=== PATIENT | female | born 1960 | race Hispanic/Latino ===

== ENCOUNTER 2025-05-18 10:04 | Emergency (ER) | payer OTHER, MEDICARE ==
[~2025-05-18] VITALS: Ht 170.2 cm; Wt 106.1 kg
[2025-05-18 10:40] LABS: BASOPHILS 0.5 % (0.1-1.2); EOSINOPHILS 0.6 % (0.7-5.8); LYMPHOCYTES 20.5 % (19.3-51.7); MCH 32.8 PG (25.6-32.2); MCHC 33.9 g/dL (32.2-35.5); MCV 96.9 fL (79.4-94.8); MONOCYTES 4.9 % (4.7-12.5); NEUTROPHILS 73.1 % (34.0-71.1); RBC 4.54 M/uL (3.93-5.22)
[2025-05-18] MEDS ORDERED: SODIUM CHLORIDE 0.9% 1,000 ML IV ONE (10:45)
[2025-05-18 10:58] LABS: ALT (SGPT) 112.0 U/L (14-59); AST (SGOT) 58.0 U/L (15-37); GLOMERULAR FILTRATION RATE,EST 51.0 mL/min (>60); PROTEIN, TOTAL 8.0 g/dL (6.4-8.2); UREA NITROGEN 20.0 mg/dL (7-18)
[2025-05-18 11:07] LABS: BLOOD/HGB, URINE NEGATIVE (Negative); KETONE, URINE SMALL (Negative); LEUK ESTERASE, URINE NEGATIVE (negative); NITRITE, URINE NEGATIVE (negative)
[2025-05-18 11:15] LABS: EPITHELIAL CELLS, URINE SQUAMOUS 2+ /lpf (0-1+)
[2025-05-18 11:16] LABS: BACTERIA, URINE RARE /hpf (negative); REFLEX CULTURE, URINE No (No)
[2025-05-18] MEDS ORDERED: METFORMIN HCL500 MG PO (12:02)
[2025-05-18] MEDS ORDERED: METFORMIN HCL1000 MG PO (12:04)
[2025-05-18 13:08] VITALS: BP 226/89
== END 2025-05-18 12:15 | disposition home or self-care (01) ==
LOC: ED 10:04
PROVIDERS: Emergency Medicine
DX: E11.65 Type 2 diabetes mellitus with hyperglycemia (principal)
CPT/HCPCS: 36415; 80053; 81001; 85025; 99284; J7030